=== PATIENT | female | born 1935 | race Caucasian/White ===

== ENCOUNTER → 2019-01-01 | Outpatient (CLI) | payer MEDICARE ==
--- NOTE | 2019-01-02 05:33 | MR ---
EXAMINATION TYPE: MR brain wo/w con DATE OF EXAM: 01/01/2019 COMPARISON: NONE HISTORY: 84-year-old female with TIA, memory loss TECHNIQUE: Multiplanar, multisequence images of the brain and brainstem were acquired before and aft er administration of 6 mL IV Gadavist. Diffusion weighted imaging is performed. FINDINGS: No evidence for acute infarction, hemorrhage, mass, mass effect, midline shift, herniation, effacemen t of basal cisterns, or extra-axial fluid collection. There is moderate generalized cerebral atrophy with secondary prominence to the ventricular system. E van's ratio is calculated at 0.33. Major intracranial flow voids are intact. T2/FLAIR weighted sequences show patchy right lower matter change in the periventricular regions and also in the subcortical region of the right paramedian precentral gyrus and anterior right frontal lo be. Midline structures demonstrate normal morphology. The craniocervical junction is normal. Post contrast images demonstrate no evidence of pathologic enhancement. Dural venous sinuses are pat ent. The visualized sinuses show scattered mild mucosal thickening ethmoid air cells and rightward nasal s eptal deviation. IMPRESSION: 1. Moderate generalized atrophy. Mild ventriculomegaly likely secondary to central cerebral atrophy. 2. No acute intracranial abnormality seen. 3. A few foci of T2 bright white matter change, particularly on the right, likely relating to changes of chronic small vessel ischemic disease.
== END | disposition home or self-care (01) ==
LOC: RADMRIMAIN 14:10
PROVIDERS: ATTEND Internal Medicine Geriatric Medicine
DX: G93.89 Other specified disorders of brain (principal); R90.89 Other abnormal findings on diagnostic imaging of central nervous system
CPT/HCPCS: 70553

== ENCOUNTER → 2019-02-08 | Outpatient (CLI) | payer MEDICARE ==
--- NOTE | 2019-02-08 09:01 | US ---
EXAMINATION TYPE: US carotid duplex BILAT DATE OF EXAM: 02/08/2019 COMPARISON: MRI CLINICAL HISTORY: G45.9 TIA. TIA EXAM MEASUREMENTS: RIGHT: Peak Systolic Velocity (PSV) cm/sec ----- Right CCA: 53.2 ----- Right ICA: 65.1 ----- Right ECA: 69.5 ICA/CCA ratio: 1.2 RIGHT: End Diastole cm/sec ----- Right CCA: 14.7 ----- Right ICA: 25.0 ----- Right ECA: 8.4 LEFT: Peak Systolic Velocity (PSV) cm/sec ----- Left CCA: 62.5 ----- Left ICA: 98.7 ----- Left ECA: 56.0 ICA/CCA ratio: 1.6 LEFT: End Diastole cm/sec ----- Left CCA: 16.2 ----- Left ICA: 35.9 ----- Left ECA: 6.8 VERTEBRALS (direction of flow): Right Vertebral: Antegrade Left Vertebral: Antegrade Rhythm: Arrhythmia No significant stenosis seen IMPRESSION: 1. Mild degree of grayscale atheromatous plaquing with no sonographically evident hemodynamically sig nificant stenosis within either visualized carotid arterial system. 2. Cardiac arrhythmia. Correlate with EKG. Criteria for Assigning % of Stenosis / Diameter reduction (Estimation based on the indirect measurements of the internal carotid artery velocities (ICA PSV). 1. Normal (no stenosis)=ICA PSV < 125 cm/s: ratio < 2.0: ICA EDV<40 cm/s. 2. Less than 50% stenosis=ICA PSV < 125 cm/s: ratio < 2.0: ICA EDV<40 cm/s. 3. 50 to 69% stenosis=ICA PSV of 125 to 230 cm/s: ration 2.0 ? 4.0: ICA EDV 40-100 cm/s. 4. Greater than 70% stenosis to near occlusion= ICA PSV > 230 cm/s: ratio > 4.0: ICA EDV > 100 cm/s. 5. Near occlusion= ICA PSV velocities may be low or undetectable: variable ratio and ICA EDV. 6. Total occlusion=unable to detect flow.
== END | disposition home or self-care (01) ==
LOC: RADUSMAIN 08:06
PROVIDERS: ATTEND Internal Medicine Geriatric Medicine
DX: I67.2 Cerebral atherosclerosis (principal); I49.9 Cardiac arrhythmia, unspecified; G45.9 Transient cerebral ischemic attack, unspecified
CPT/HCPCS: 93880